=== PATIENT | female | born 1970 | race Two or more races ===

== ENCOUNTER 2019-06-04 16:21 | Emergency (ER) | payer BC | END 2019-06-04 20:43 | disposition home or self-care (01) | LOC: MED 16:21 | DX: J30.2 Other seasonal allergic rhinitis (principal) | CPT/HCPCS: 87804; 99283 ==

== ENCOUNTER 2020-11-08 01:09 | Emergency (ER) | payer BC, OTHER ==
[~2020-11-08] VITALS: Ht 154.9 cm; Wt 49.9 kg
[2020-11-08 01:10] VITALS: BP 116/71
--- NOTE | 2020-11-08 01:10 | NUR ---
PT TAKEN TO BED 6
--- NOTE | 2020-11-08 01:18 | NUR ---
SEE PATIENT ASSESSMENT FOR MORE INFORMATION.
[2020-11-08] MEDS ORDERED: IBUPROFEN 800 MG TAB PO ONE (01:20)
--- NOTE | 2020-11-08 01:26 | NUR ---
PATIENT REFUSED PAIN MEDICATION.
--- NOTE | 2020-11-08 01:27 | NUR ---
Dr. Coughlin examining patient.
--- NOTE | 2020-11-08 01:27 | NUR ---
ERMD AT BEDSIDE.
--- NOTE | 2020-11-08 01:32 | NUR ---
RADIOLOGY AT BEDSIDE.
[2020-11-08] MEDS ORDERED: LIDOCAINE 2% 1000 MG/50 ML VIAL INJ ONE (02:00)
--- NOTE | 2020-11-08 02:25 | NUR ---
LIDOCAINE HANDED TO [facility] FOR PROCEDURE.
--- NOTE | 2020-11-08 02:48 | NUR ---
X-Ray at bedside.
[2020-11-08] MEDS ORDERED: IBUP-2218 PO (03:04)
[2020-11-08 03:24] VITALS: BP 116/71
== END 2020-11-08 03:24 | disposition home or self-care (01) ==
LOC: MED 01:09
DX: S52.502A Unspecified fracture of the lower end of left radius, initial encounter for closed fracture (principal); Z98.890 Other specified postprocedural states; W19.XXXA Unspecified fall, initial encounter; Y93.89 Activity, other specified; Y92.238 Other place in hospital as the place of occurrence of the external cause; Y99.0 Civilian activity done for income or pay
CPT/HCPCS: 25605; 73110; 99284; J2001; 99283

== ENCOUNTER 2020-11-29 06:44 | Emergency (ER) | payer OTHER ==
[~2020-11-29] VITALS: Ht 157.5 cm; Wt 49.9 kg
[~2020-11-29 06:44] MED LIST: IBUP-2218 PO
[2020-11-29 07:00] VITALS: BP 115/69
--- NOTE | 2020-11-29 07:00 | NUR ---
TO BED AMBULATORY
--- NOTE | 2020-11-29 07:10 | NUR ---
Dr. Peres at the bedside evaluating patient.
--- NOTE | 2020-11-29 07:20 | NUR ---
S/P SLIPPED AND FALL LAST NOVEMBER 08, ANDHER LEFT ARM WAS CAST LAST NOVEMBER 20, NOW WITH PAIN, SWELLING AND TIGHTNESS AND POOR CIRCULATION
[2020-11-29 07:30] VITALS: BP 115/69
--- NOTE | 2020-11-29 07:30 | NUR ---
Patient discharged with v/s stable. Written and verbal after care instructions given and explained. Patient verbalized understanding. Ambulatory with steady gait. All questions addressed prior to discharge. Advised to follow up with PMD.
== END 2020-11-29 07:30 | disposition home or self-care (01) ==
LOC: MED 06:44
DX: S52.502D Unspecified fracture of the lower end of left radius, subsequent encounter for closed fracture with routine healing (principal); Z46.89 Encounter for fitting and adjustment of other specified devices; Z79.899 Other long term (current) drug therapy; X58.XXXD Exposure to other specified factors, subsequent encounter
CPT/HCPCS: 99281

== ENCOUNTER 2020-12-26 12:37 | Emergency (ER) | payer OTHER ==
[~2020-12-26] VITALS: Ht 157.5 cm; Wt 72.6 kg
[2020-12-26 12:47] VITALS: BP 122/83
--- NOTE | 2020-12-26 12:56 | NUR ---
Patient ambulated to bed 7. RN evaluating the patient at bedside.
--- NOTE | 2020-12-26 13:07 | NUR ---
50 Y/O FEMALE C/O LEFT HAND PAIN , SWELLING S/P CASTED OFF X 8 DAYS. SEEN HERE 11/08/20 FOR LEFT DISTAL RADIAL FRACTURE. DENIES PMH NKA
[2020-12-26 13:26] VITALS: BP 122/83
== END 2020-12-26 13:29 | disposition home or self-care (01) ==
LOC: MED 12:37
DX: R60.9 Edema, unspecified (principal); Z79.899 Other long term (current) drug therapy
CPT/HCPCS: 99281

== ENCOUNTER 2021-12-26 03:38 | Inpatient (IN) | payer OTHER ==
[~2021-12-26] VITALS: Ht 157.5 cm; Wt 70.3 kg
[2021-12-26 03:45] VITALS: BP 103/70
[2021-12-26] MEDS ORDERED: NACL 0.9% 1,000 ML IV ONE ×2 (04:15→06:05)
[2021-12-26 05:03] LABS: BASOPHILS % (AUTO) 0.7 % (0.0-2.0); EOSINOPHILS % (AUTO) 0.2 % (0.0-4.0); HEMOGLOBIN 12.2 g/dL (12.0-16.0); LYMPHOCYTES # (AUTO) 0.6 K/uL (2.5-16.5); MEAN CORPUSCULAR HEMOGLOBIN 29 pg (27-31); MEAN CORPUSCULAR HGB CONC 33 g/dL (33-37); MEAN CORPUSCULAR VOLUME 88.4 fL (80-94); MONOCYTES # (AUTO) 0.6 K/uL (0.8-1.0); MONOCYTES % (AUTO) 10.4 % (1.7-9.3); NEUTROPHILS # (AUTO) 4.2 K/uL (1.8-7.7); NEUTROPHILS % (AUTO) 77.7 % (42.2-75.2); PLATELET COUNT (AUTO) 197 K/uL (140-450); RED BLOOD CELL COUNT(AUTO) 4.19 MIL/uL (4.20-5.40); RED CELL DISTRIBUTION WIDTH 13.3 % (11.6-13.7); WHITE BLOOD COUNT (AUTO) 5.4 K/uL (4.8-10.8)
[2021-12-26 05:17] LABS: ALBUMIN 3.5 g/dL (3.4-5.0); ANION GAP 8.3 (8-16); ASPARTATE AMINOTRANSFERASE 24 U/L (15-37); CARBON DIOXIDE 29.2 mmol/L (21-32); CHLORIDE 99 mmol/L (98-107); CREATININE 0.6 mg/dL (0.6-1.3); GFR ARICAN-AMERICAN 136 mL/min (>90); GLUCOSE 141 mg/dL (74-106); POTASSIUM 3.5 mmol/L (3.5-5.1); SODIUM SERUM 133 mmol/L (136-145); THYROID STIMULATING HORMONE 0.44 uIU/mL (0.34-3.74); TOTAL BILIRUBIN 0.4 mg/dL (0.0-1.0); UREA NITROGEN, BLOOD 11 mg/dL (7-18)
[2021-12-26 06:15] LABS: BILIRUBIN,URINE NEGATIVE (NEGATIVE); BLOOD, URINE TRACE-I (NEGATIVE); COLOR,URINE YELLOW (YELLOW); LEUKOCYTE ESTERASE ,URINE TRACE (NEGATIVE); NITRITE, URINE NEGATIVE (NEGATIVE); UGLUCOSE NEGATIVE (NEGATIVE)
[2021-12-26 06:35] LABS: APPEARANCE,URINE SLIGHTLY HAZY (CLEAR)
[2021-12-26] MEDS ORDERED: MAG SULF 2000 MG/WATER PREMIX 50 ML IV PRN (07:40)
[2021-12-26] MEDS: NACL 0.9% 1,000 ML IV SCH ×2 (07:40→17:57)
[2021-12-26] MEDS ORDERED: MORPHINE SULFATE 2 MG/ML SYR IVP PRN (07:40)
[2021-12-26] MEDS ORDERED: ACETAMINOPHEN 325 MG TAB PO PRN (07:40)
[2021-12-26] MEDS ORDERED: SODIUM PHOS / POTASSIUM PHOS 1 PKT PDR PO PRN (07:40)
[2021-12-26] MEDS ORDERED: DOCUSATE SODIUM 100 MG GELCAP PO PRN (07:40)
[2021-12-26] MEDS ORDERED: POTASSIUM CHLORIDE 10 MEQ TABER PO PRN (07:40)
[2021-12-26] MEDS ORDERED: HYDROcodone/APAP 5/325 MG 1 TAB TAB PO PRN (07:40)
[2021-12-26] MEDS ORDERED: ZOLPIDEM 5 MG TAB PO PRN (07:40)
[2021-12-26] MEDS ORDERED: ONDANSETRON 4 MG/2 ML VIAL IVP PRN (07:40)
[2021-12-26] MEDS ORDERED: LORazepam 1 MG TAB PO PRN (07:50)
[2021-12-26 08:05] VITALS: BP 119/76
[2021-12-26 08:13] LABS: CALCIUM OXALATE CRYSTALS,UR None Seen /HPF (None Seen); COARSE GRANULAR CASTS,URINE None Seen /LPF (None Seen); FINE GRANULAR CASTS,URINE None Seen /LPF (None Seen); HYALINE CASTS, URINE None Seen /LPF (None Seen); OTHER CASTS, URINE None Seen /LPF (None Seen); OTHER CRYSTALS,URINE None Seen /HPF (None Seen); RBC,URINE 0-5 /HPF (0-5); RED BLOOD CELL CASTS,URINE None Seen /LPF (None Seen); TRICHOMONAS,URINE None Seen /HPF (None Seen); TRIPLE PHOSPHATE CRYSTAL,UR None Seen /HPF (None Seen); URIC ACID CRYSTALS,URINE None Seen /HPF (None Seen); URINE AMORPHOUS URATE None Seen /HPF (None Seen); WAXY CASTS,URINE None Seen /LPF (None Seen); WBC,URINE 0-5 /HPF (0-5); YEAST,URINE None Seen /HPF (None Seen)
[2021-12-26 09:03] LABS: AMYLASE 61 U/L (25-115); CHOL/HDL RATIO 1.9 (1-4.5); FREE T4 (FREE THYROXINE) 1.03 ng/dL (0.76-1.46); HDL CHOLESTEROL 86 mg/dL (40-60); LDL (CALC) 71 mg/dL (60-100); LIPASE 117 U/L (73-393); PHOSPHORUS 3.6 mg/dL (2.5-4.9); TRIGLYCERIDES 22 mg/dL (30-150)
[2021-12-26 12:00] VITALS: BP 109/67
[2021-12-26 20:00] VITALS: BP 119/73
[2021-12-27] VITALS: BP 117/63
[2021-12-27] MEDS: NACL 0.9% 1,000 ML IV SCH ×3 (03:40→23:40)
[2021-12-27 04:00] VITALS: BP 107/65
[2021-12-27 07:07] LABS: BASOPHILS % (AUTO) 0.4 % (0.0-2.0); EOSINOPHILS % (AUTO) 0.1 % (0.0-4.0); HEMATOCRIT 32.6 % (36-48); HEMOGLOBIN 10.9 g/dL (12.0-16.0); LYMPHOCYTES # (AUTO) 1.4 K/uL (2.5-16.5); LYMPHOCYTES % (AUTO) 30.4 % (20.5-51.1); MEAN CORPUSCULAR HEMOGLOBIN 29 pg (27-31); MEAN CORPUSCULAR HGB CONC 34 g/dL (33-37); MEAN CORPUSCULAR VOLUME 87.5 fL (80-94); MONOCYTES # (AUTO) 0.7 K/uL (0.8-1.0); MONOCYTES % (AUTO) 15.7 % (1.7-9.3); NEUTROPHILS # (AUTO) 2.4 K/uL (1.8-7.7); NEUTROPHILS % (AUTO) 53.4 % (42.2-75.2); PLATELET COUNT (AUTO) 157 K/uL (140-450); RED BLOOD CELL COUNT(AUTO) 3.72 MIL/uL (4.20-5.40); RED CELL DISTRIBUTION WIDTH 13.2 % (11.6-13.7); WHITE BLOOD COUNT (AUTO) 4.5 K/uL (4.8-10.8)
[2021-12-27 07:09] LABS: ALBUMIN 2.8 g/dL (3.4-5.0); CARBON DIOXIDE 28.2 mmol/L (21-32); CREATININE 0.5 mg/dL (0.6-1.3); MAGNESIUM 1.9 mg/dL (1.8-2.4); POTASSIUM 3.2 mmol/L (3.5-5.1); TOTAL BILIRUBIN 0.3 mg/dL (0.0-1.0)
[2021-12-27 08:00] VITALS: BP 110/68
[2021-12-27 16:00] VITALS: BP 105/60
[2021-12-27 20:00] VITALS: BP 110/72
[2021-12-28 04:00] VITALS: BP 112/58
[2021-12-28 07:00] LABS: BASOPHILS % (AUTO) 0.5 % (0.0-2.0); EOSINOPHILS # (AUTO) 0.1 K/uL (0-0.4); EOSINOPHILS % (AUTO) 1.4 % (0.0-4.0); HEMATOCRIT 36.6 % (36-48); HEMOGLOBIN 12.1 g/dL (12.0-16.0); LYMPHOCYTES # (AUTO) 1.1 K/uL (2.5-16.5); LYMPHOCYTES % (AUTO) 26.7 % (20.5-51.1); MEAN CORPUSCULAR HEMOGLOBIN 29 pg (27-31); MEAN CORPUSCULAR HGB CONC 33 g/dL (33-37); MEAN CORPUSCULAR VOLUME 87.7 fL (80-94); MONOCYTES # (AUTO) 0.6 K/uL (0.8-1.0); MONOCYTES % (AUTO) 15.3 % (1.7-9.3); NEUTROPHILS # (AUTO) 2.3 K/uL (1.8-7.7); NEUTROPHILS % (AUTO) 56.1 % (42.2-75.2); PLATELET COUNT (AUTO) 202 K/uL (140-450); RED BLOOD CELL COUNT(AUTO) 4.18 MIL/uL (4.20-5.40); RED CELL DISTRIBUTION WIDTH 13.3 % (11.6-13.7); WHITE BLOOD COUNT (AUTO) 4.2 K/uL (4.8-10.8)
[2021-12-28 07:05] LABS: ANION GAP 9.7 (8-16); CARBON DIOXIDE 29.1 mmol/L (21-32); CREATININE 0.6 mg/dL (0.6-1.3); POTASSIUM 3.8 mmol/L (3.5-5.1); TOTAL BILIRUBIN 0.2 mg/dL (0.0-1.0)
[2021-12-28 08:00] VITALS: BP 106/63
[2021-12-28] MEDS ORDERED: guaiFENesin DM 200/20 MG-10 ML 10 ML UDC PO PRN (09:05)
[2021-12-28] MEDS: NACL 0.9% 1,000 ML IV SCH (09:40)
[2021-12-28] MEDS ORDERED: ASPI325T99 PO (11:22)
[2021-12-28] MEDS ORDERED: CEPH-588 PO (11:22)
[2021-12-28] MEDS ORDERED: DEC4 PO (11:22)
[2021-12-28] MEDS ORDERED: MUC600 PO (11:27)
[2021-12-28] MEDS ORDERED: NIRM1TAB5 PO (11:30)
== END 2021-12-28 13:33 | disposition home or self-care (01) | DRG 178 ==
LOC: EEVIPCON 03:38 → MED 03:38 → MTU 06:17
PROVIDERS: ADMIT Family Medicine; ATTEND Family Medicine
DX: U07.1 COVID-19 (principal); E87.1 Hypo-osmolality and hyponatremia; E86.0 Dehydration; E87.6 Hypokalemia; Z79.1 Long term (current) use of non-steroidal anti-inflammatories (NSAID); Z79.899 Other long term (current) drug therapy; Z90.721 Acquired absence of ovaries, unilateral
CPT/HCPCS: 36415; 71045; 80053; 81001; 82150; 83036; 83690; 83735; 83880; 84100; 84439; 84443; 84484; 85025; 85610; 85730; 87081; 93005; 96360; 96361; 99285; J7030; Q0092

== ENCOUNTER 2022-07-03 12:50 | Emergency (ER) | payer OTHER ==
[~2022-07-03] VITALS: Ht 154.9 cm; Wt 68.0 kg
[~2022-07-03 12:50] MED LIST changes: +ASPI325T99 PO; +CEPH-588 PO; +DEC4 PO; +MUC600 PO; +NIRM1TAB5 PO
[2022-07-03 12:58] VITALS: BP 128/79
--- NOTE | 2022-07-03 13:00 | NUR ---
PT AMBULATED TO LOBBY
--- NOTE | 2022-07-03 13:17 | NUR ---
52/F WALKED IN C/O LEFT KNEE PAIN AND SWELLING X 2 DAYS. DENIES FALL OR INJURY. REPORTS CONSTANT THROBBING PAIN, WORSE WITH MOVEMENT. AAO4, AMBULATORY, VITALS STABLE, NO ACUTE DISTRESS NOTED PMH: DENIES
[2022-07-03] MEDS ORDERED: KETOROLAC 30 MG/ML VIAL IM ONE (13:50)
--- NOTE | 2022-07-03 14:22 | NUR ---
Patient states took Tramadol 6 hours ago; refusing Toradol 30mg IM at this time.
--- NOTE | 2022-07-03 15:52 | NUR ---
BLOOD DRAWN BY DOGMAN/WOMAN
[2022-07-03 16:07] LABS: BASOPHILS % (AUTO) 0.4 % (0.0-2.0); EOSINOPHILS # (AUTO) 0.1 K/uL (0-0.4); HEMATOCRIT 37.5 % (36-48); HEMOGLOBIN 12.4 g/dL (12.0-16.0); LYMPHOCYTES # (AUTO) 1.9 K/uL (2.5-16.5); LYMPHOCYTES % (AUTO) 33.8 % (20.5-51.1); MEAN CORPUSCULAR HEMOGLOBIN 29 pg (27-31); MEAN CORPUSCULAR HGB CONC 33 g/dL (33-37); MEAN CORPUSCULAR VOLUME 88.2 fL (80-94); MONOCYTES # (AUTO) 0.6 K/uL (0.8-1.0); MONOCYTES % (AUTO) 9.8 % (1.7-9.3); NEUTROPHILS # (AUTO) 3.2 K/uL (1.8-7.7); PLATELET COUNT (AUTO) 269 K/uL (140-450); RED BLOOD CELL COUNT(AUTO) 4.25 MIL/uL (4.20-5.40); RED CELL DISTRIBUTION WIDTH 13.1 % (11.6-13.7); WHITE BLOOD COUNT (AUTO) 5.7 K/uL (4.8-10.8)
[2022-07-03] MEDS ORDERED: ACET-1195 PO (17:10)
[2022-07-03] MEDS ORDERED: RIVA15TA1 PO (17:10)
[2022-07-03 17:20] VITALS: BP 124/63
== END 2022-07-03 17:20 | disposition home or self-care (01) ==
LOC: MED 12:50
DX: I82.492 Acute embolism and thrombosis of other specified deep vein of left lower extremity (principal); Z79.899 Other long term (current) drug therapy
CPT/HCPCS: 36415; 73560; 85025; 93971; 99285; J1885

== ENCOUNTER 2022-07-10 10:57 | Outpatient (CLI) | payer OTHER ==
[~2022-07-10 10:57] MED LIST changes: +ACET-1195 PO; +RIVA15TA1 PO
== END 2022-07-10 20:05 | disposition home or self-care (01) ==
LOC: MUS 10:57
PROVIDERS: ATTEND Hospitalist
DX: R74.01 Elevation of levels of liver transaminase levels (principal)
CPT/HCPCS: 76705

== ENCOUNTER 2022-07-16 16:29 | Emergency (ER) | payer OTHER ==
[~2022-07-16] VITALS: Ht 154.9 cm; Wt 73.0 kg
[2022-07-16 16:45] VITALS: BP 134/81
[2022-07-16 17:16] LABS: BASOPHILS % (AUTO) 0.4 % (0.0-2.0); EOSINOPHILS % (AUTO) 0.4 % (0.0-4.0); HEMATOCRIT 38.2 % (36-48); HEMOGLOBIN 12.7 g/dL (12.0-16.0); LYMPHOCYTES # (AUTO) 1.6 K/uL (2.5-16.5); LYMPHOCYTES % (AUTO) 31.6 % (20.5-51.1); MEAN CORPUSCULAR HEMOGLOBIN 29 pg (27-31); MEAN CORPUSCULAR HGB CONC 33 g/dL (33-37); MEAN CORPUSCULAR VOLUME 86.6 fL (80-94); MONOCYTES # (AUTO) 0.3 K/uL (0.8-1.0); MONOCYTES % (AUTO) 6.8 % (1.7-9.3); NEUTROPHILS # (AUTO) 3.1 K/uL (1.8-7.7); NEUTROPHILS % (AUTO) 60.8 % (42.2-75.2); PLATELET COUNT (AUTO) 259 K/uL (140-450); RED BLOOD CELL COUNT(AUTO) 4.41 MIL/uL (4.20-5.40); RED CELL DISTRIBUTION WIDTH 13.2 % (11.6-13.7); WHITE BLOOD COUNT (AUTO) 5.1 K/uL (4.8-10.8)
[2022-07-16 17:38] LABS: ALBUMIN 4.2 g/dL (3.4-5.0); ASPARTATE AMINOTRANSFERASE 16 U/L (15-37); CARBON DIOXIDE 29.5 mmol/L (21-32); CHLORIDE 99 mmol/L (98-107); CREATININE 0.8 mg/dL (0.6-1.3); GFR ARICAN-AMERICAN 97 mL/min (>90); GLUCOSE 167 mg/dL (74-106); POTASSIUM 3.5 mmol/L (3.5-5.1); SODIUM SERUM 135 mmol/L (136-145); TOTAL BILIRUBIN 0.2 mg/dL (0.0-1.0); UREA NITROGEN, BLOOD 12 mg/dL (7-18)
--- NOTE | 2022-07-16 23:17 | NUR ---
Patient taken to CT scan via WC.
[2022-07-17 00:40] VITALS: BP 128/81
== END 2022-07-17 00:40 | disposition home or self-care (01) ==
LOC: MED 16:29
DX: R07.89 Other chest pain (principal); R22.42 Localized swelling, mass and lump, left lower limb; Z86.718 Personal history of other venous thrombosis and embolism; Z79.899 Other long term (current) drug therapy; Z79.01 Long term (current) use of anticoagulants; Z79.2 Long term (current) use of antibiotics; Z79.82 Long term (current) use of aspirin; Z79.1 Long term (current) use of non-steroidal anti-inflammatories (NSAID)
CPT/HCPCS: 36415; 71275; 80053; 81025; 84484; 85025; 85379; 93005; 99285; Q9967

== ENCOUNTER 2024-04-05 00:25 | Emergency (ER) | payer OTHER ==
[~2024-04-05] VITALS: Ht 160 cm; Wt 60.3 kg
[~2024-04-05 00:25] MED LIST changes: +IBUP-2213 PO
[2024-04-05 00:34] VITALS: BP 123/71; PULSE 61; RESP 18; TEMP 97.9; O2SAT 99
[2024-04-05 01:09] LABS: FLU A ANTIGEN negative (NEGATIVE); FLU B ANTIGEN NEGATIVE (NEGATIVE)
[2024-04-05] MEDS: ACETAMINOPHEN EXTRA STRENGTH 500 MG TAB PO ONE (01:15)
[2024-04-05] MEDS: ONDANSETRON 4 MG ODT PO ONE (01:15)
[2024-04-05] MEDS: ALUMINUM HYD/MAG/SIMETHICONE 30 ML UDC PO ONE (01:16)
[2024-04-05 01:18] LABS: BASOPHILS % (AUTO) 0.3 % (0.0-2.0); EOSINOPHILS % (AUTO) 0.4 % (0.0-4.0); HEMATOCRIT 37.4 % (36-48); HEMOGLOBIN 12.5 g/dL (12.0-16.0); LYMPHOCYTES # (AUTO) 1.1 K/uL (2.5-16.5); LYMPHOCYTES % (AUTO) 17.6 % (20.5-51.1); MEAN CORPUSCULAR HEMOGLOBIN 30 pg (27-31); MEAN CORPUSCULAR HGB CONC 34 g/dL (33-37); MEAN CORPUSCULAR VOLUME 89.7 fL (80-94); MONOCYTES # (AUTO) 0.4 K/uL (0.8-1.0); MONOCYTES % (AUTO) 6.9 % (1.7-9.3); NEUTROPHILS # (AUTO) 4.7 K/uL (1.8-7.7); NEUTROPHILS % (AUTO) 74.8 % (42.2-75.2); PLATELET COUNT (AUTO) 218 K/uL (140-450); RED BLOOD CELL COUNT(AUTO) 4.16 MIL/uL (4.20-5.40); RED CELL DISTRIBUTION WIDTH 13.3 % (11.6-13.7); WHITE BLOOD COUNT (AUTO) 6.3 K/uL (4.8-10.8)
[2024-04-05 01:58] LABS: ALANINE AMINOTRANSFERASE 28 U/L (12-78); ALBUMIN 3.6 g/dL (3.4-5.0); ALKALINE PHOSPHATASE 98 U/L (50-136); ANION GAP 7.4 (8-16); ASPARTATE AMINOTRANSFERASE 24 U/L (15-37); CALCIUM 8.9 mg/dL (8.5-10.1); CARBON DIOXIDE 30.6 mmol/L (21-32); CHLORIDE 102 mmol/L (98-107); CREATININE 0.8 mg/dL (0.6-1.3); FREE T4 (FREE THYROXINE) 1.21 ng/dL (0.76-1.46); GFR ARICAN-AMERICAN 97 mL/min (>90); GFR NON ARICAN-AMERICAN 80 mL/min (>90); GLUCOSE 143 mg/dL (74-106); LIPASE 69 U/L (16-77); SODIUM SERUM 136 mmol/L (136-145); THYROID STIMULATING HORMONE 0.75 uIU/mL (0.34-3.74); TOTAL BILIRUBIN 0.3 mg/dL (0.0-1.0); TOTAL PROTEIN, SERUM 7.3 g/dL (6.4-8.2); UREA NITROGEN, BLOOD 17 mg/dL (7-18)
[2024-04-05] MEDS ORDERED: FAMO-90 PO (02:16)
[2024-04-05] MEDS ORDERED: ACET-1195 PO (02:16)
[2024-04-05] MEDS ORDERED: IBUP-2213 PO (02:16)
[2024-04-05] MEDS ORDERED: ONDA-188 PO (02:16)
[2024-04-05 02:24] VITALS: BP 123/71; PULSE 61; RESP 18; TEMP 97.9; O2SAT 99
== END 2024-04-05 02:24 | disposition home or self-care (01) ==
LOC: MED 00:25
DX: R53.83 Other fatigue (principal); B34.9 Viral infection, unspecified; R53.81 Other malaise; E11.9 Type 2 diabetes mellitus without complications; Z20.822 Contact with and (suspected) exposure to COVID-19; Z79.899 Other long term (current) drug therapy
CPT/HCPCS: 36415; 80053; 83690; 84439; 84443; 84484; 85025; 87426; 87804; 93005; 99284; Q0162